=== PATIENT | male | born 1950 | race Caucasian/White ===

== ENCOUNTER 2017-07-12 05:33 | Outpatient (CLI) | payer OTHER ==
[~2017-07-12] VITALS: Ht 170.2 cm; Wt 77.1 kg
[2017-07-12] MEDS ORDERED: TELM40T PO (14:00)
== END 2017-07-12 14:01 ==
LOC: PREOP 05:33
PROVIDERS: ATTEND Internal Medicine
DX: Z01.818 Encounter for other preprocedural examination (principal)

== ENCOUNTER 2017-07-20 06:54 | Day surgery (SDC) | payer OTHER ==
--- NOTE | 2017-07-13 05:59 | HISTORY AND PHYSICAL ---
DATE OF SERVICE: DATE OF ADMISSION: 07/20/2017. COLONOSCOPY HISTORY AND PHYSICAL HISTORY OF PRESENT ILLNESS: The patient is a 67-year-old white male referred by Dr. Sandoval for screening colonoscopy. He does have a past history of colon polyps and had undergone colonoscopy performed by myself 7 years ago at which time one hyperplastic polyp was removed from the proximal ascending colon as well as the mid descending colon. He also had moderate diverticular disease at that time. He reports that he feels well and there have been no changes in health history. He has had no bowel habit change and has noted no blood in stool. He also denies any problems with abdominal cramping or pain. FAMILY HISTORY: He believes that there was a great grandmother diagnosed with colon cancer later in life. MEDICATIONS: He is on a blood pressure medication. I believe Micardis and has no other reported prescription medications. 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 PHYSICAL EXAMINATION: GENERAL: Reveals a well appearing white male in no acute distress. VITAL SIGNS: Weight is 181 pounds and is up 2.2 pounds from 2010, blood pressure 124/78. HEENT: Unremarkable. There is a Mallampati class 2 oropharyngeal configuration without erythema. NECK: Reveals no JVD, adenopathy or bruits. CHEST: Clear. CARDIOVASCULAR: Reveals a regular rate and rhythm without murmur, S3 or S4. ABDOMEN: Soft, supple without mass, organomegaly or tenderness. Bowel sounds are noted in all four quadrants. No bruits are appreciated. EXTREMITIES: Reveal no cyanosis, clubbing or edema. ASSESSMENT: The patient is set up for screening colonoscopy on 07/20/2017. Prep instructions with Suprep kit were given and questions were answered. I thank you for the referral of this pleasant gentleman. Job ID: [id number] DocumentID: [id number] Dictated Date: 06/15/2017 12:44:56 [employer] Officer Date: 06/15/2017 13:24:09 Dictated By: HARRIETT AMES MD
[~2017-07-20] VITALS: Ht 170.2 cm; Wt 77.1 kg
[~2017-07-20 06:54] MED LIST: TELM40T PO
[2017-07-20] MEDS ORDERED: D5 LR IV SOLUTION 1,000 ML IV STA (07:03)
[2017-07-20] MEDS ORDERED: D5 LR IV SOLUTION 1,000 ML IV ONE (07:08)
[2017-07-20] MEDS ORDERED: MIDAZOLAM 2 MG/2 ML (VERSED) VIAL IVP PRN (07:15)
[2017-07-20] MEDS ORDERED: FLUMAZENIL (ROMAZICON) 0.1 MG/ML 5 ML VIAL INJ PRN (07:15)
[2017-07-20] MEDS ORDERED: NALOXONE 0.4 MG/ML 1 ML (NARCAN) VIAL IVP PRN (07:15)
[2017-07-20 07:29] VITALS: BP 127/82
[2017-07-20] MEDS ORDERED: LIDOCAINE JELLY 2% (XYLOCAINE) 5 ML TUBE ONE (07:34)
[2017-07-20] MEDS ORDERED: MIDAZOLAM 2 MG/2 ML (VERSED) VIAL ONE ×2 (07:34)
[2017-07-20] MEDS ORDERED: fentaNYL INJECTION 100 MCG/2 ML AMP ONE (07:34)
[2017-07-20] MEDS ORDERED: LIDOCAINE JELLY 2% (XYLOCAINE) 5 ML TUBE TOP ONE (07:45)
--- NOTE | 2017-07-20 07:57 | Pre-Op Note & Conscious Sedat ---
Pre-Operative Progress Note H&P Reviewed The H&P was reviewed, patient examined and no changes noted. Date H&P Reviewed: July 20, 2017 Time H&P Reviewed: 07:50 Conscious Sedation Pre-Proced ASA Class: 2 Airway Mallampati Classification: ([place] appropriate class) I. II. III, IV Lungs Heart ASA score ASA 1: a normal healthy patient ASA 2: a patient with a mild systemic disease (mid diabetes, controlled hypertension, obesity ASA 3: a patient with a severe systemic disease that limits activity (angina , COPD, prior Myocardial infarction) ASA 4: a patient with an incapacitating disease that is a constant threat to life (CHF, renal failure) ASA 5: a moribund patient not expected to survive 24 hrs. (ruptured aneurysm) ASA 6: a declared brain patient whose organs are being harvested. For emergent operations, add the letter E after the classification Grade 2 Sedation Plan: Analgesia, Amnesia, Plan communicated to team members, Discussed options with patient/fam, Discussed risks with patient/fam Note The patient is an appropriate candidate to undergo the planned procedure, sedation, and anesthesia. The patient immediately re-assessed prior to indication. HARRIETT AMES MD July 20, 2017 07:57
[2017-07-20] MEDS: fentaNYL INJECTION 100 MCG/2 ML AMP IVP PRN ×2 (08:02→08:05)
[2017-07-20 08:40] VITALS: BP 103/72
[2017-07-20 09:05] VITALS: BP 101/73
[2017-07-20 09:19] VITALS: BP 101/80
--- NOTE | 2017-07-20 15:30 | OPERATIVE REPORT ---
DATE OF SERVICE: INDICATION FOR THE PROCEDURE: Screening colonoscopy. The patient was placed in the left lateral decubitus position. Prior to undergoing colonoscopy, digital rectal evaluation was performed. Anal sphincter tone was normal and the perianal reflexes intact. There is an 8 mm perianal papilloma present. No evidence for internal or external hemorrhoids were noted. Prostate is mildly enlarged, nontender and anodular on digital inspection. No other abnormalities. No additional inspection of the distal rectal vault or anal canal. The colonoscope was then inserted into the rectum under direct visualization, advanced to the cecum. Cecum was identified by identification of the ileocecal valve, cecal strap as well as appendiceal orifice. Photographic documentation was obtained. Careful inspection was made as the colonoscope was withdrawn. The patient tolerated the procedure well. FINDINGS: There is no evidence for internal or external hemorrhoids. At the 12 o'clock position, there is an 8 mm soft to palpation, growth compatible with a perianal papilloma that was noninflamed, no ulceration. Present in the mid rectum was a diminutive 3 mm polyp. It was photographed and biopsied, ablated and submitted for histopathology. Remainder of the rectum was unremarkable. A moderate number of small to medium size diverticulum were noted, confined to the sigmoid colon without evidence for diverticulitis. No other sigmoid colonic abnormalities were appreciated. The descending colon, splenic flexure, transverse colon, hepatic flexure, ascending colon and cecum were unremarkable. ASSESSMENT: 1. Diminutive hyperplastic appearing polyp was removed via hot forceps from the mid rectum. No other evidence for neoplasia was identified on today's colonoscopy. Would abdicate consideration for repeat screening colonoscopy in 10 years. 2. Small asymptomatic perianal papilloma without evidence for internal or external hemorrhoids is present. 3. Digital rectal evaluation was compatible with mild benign prostatic hypertrophy. I thank you for the referral of this pleasant gentleman. Job ID: [id number] DocumentID: [id number] Dictated Date: 07/20/2017 08:37:05 Oven Dumper Date: 07/20/2017 15:29:38 Dictated By: HARRIETT AMES MD [facility]
== END 2017-07-20 09:25 | disposition home or self-care (01) ==
LOC: ENDO 06:54
PROVIDERS: ATTEND Internal Medicine
DX: Z12.11 Encounter for screening for malignant neoplasm of colon (principal); D12.9 Benign neoplasm of anus and anal canal; K62.1 Rectal polyp; N40.0 Benign prostatic hyperplasia without lower urinary tract symptoms; Z87.19 Personal history of other diseases of the digestive system; Z80.0 Family history of malignant neoplasm of digestive organs
CPT/HCPCS: 88305

== ENCOUNTER → 2017-11-20 | Outpatient (CLI) | payer OTHER ==
--- NOTE | 2017-11-20 10:50 | Diagnostic Imaging Report ---
CLINICAL INDICATION: Patient slept wrong on neck and has some stiffness. It has been a couple of weeks now and not getting better. Patient now having down left side. EXAM: X-ray of the cervical spine, 3 views. COMPARISON: None. FINDINGS: Cervical spine has normal alignment with no acute fracture or dislocation. There is mildly hypertrophic spurs anteriorly seen from the C4-C7 levels. There is mild loss of intervertebral disc height at the C5-C6 and C6-C7 levels. Odontoid views show no significant abnormality. There is minimal facet arthropathy at the mid to lower cervical spine. There is no prevertebral soft tissue swelling. IMPRESSION: Mild cervical spine degenerative disease. Results of this report were discussed with Dr. Sera Barcenas APRN via the telephone on 11/20/2017 at 1015 hrs. Dictated by: Dictated on workstation # [id number]
--- NOTE | 2017-11-20 10:54 | Diagnostic Imaging Report ---
Clinical indication: Patient slept wrong on his neck and has some stiffness. This has been a couple weeks now and not getting better. Patient now having pain down left side. Exam: X-ray of the thoracic spine, AP and lateral views. Comparison: None. Findings: There is limited visualization of the upper thoracic spinal lateral view due to over x-ray penetration and overlapping bone and soft tissue. There is minimal spurring involving the thoracic spine. There is no acute fracture or dislocation. There is mild loss of vertebral disc height of a midthoracic intervertebral level. Otherwise thoracic spine is unremarkable as visualized. There is a 2.3 cm circumscribed dense area of calcification overlying the inferior right liver shadow region suspected to represent a gallstone. Impression: 1: Mild thoracic spine degenerative disease. 2: Suspected cholelithiasis. If patient has symptoms for cholecystitis, right upper quadrant ultrasound would better evaluate. Results of this report was discussed with Sera Barcenas APRN via the telephone on 11/20/2017 at 1015 hrs. Dictated by: Dictated on workstation # [id number]
== END ==
LOC: RAD 09:37
PROVIDERS: ATTEND Nurse Practitioner Family
DX: M47.812 Spondylosis without myelopathy or radiculopathy, cervical region (principal); M47.814 Spondylosis without myelopathy or radiculopathy, thoracic region
CPT/HCPCS: 72040; 72072